=== PATIENT | male | born 1965 | race Caucasian/White ===

== ENCOUNTER 2020-01-06 17:43 | Inpatient (IN) | payer MEDICARE, MEDICAID, SELFPAY ==
[2020-01-06 18:00] VITALS: BMI 23.7
[2020-01-06 18:25] VITALS: BP 139/89; PULSE 62; RESP 16; TEMP 36.7; O2SAT 95
[2020-01-06 18:26] VITALS: BMI 23.7
--- NOTE | 2020-01-06 20:52 | PCM.HP.STD ---
Problem List (1) Debility Status: Acute (2) Perirectal abscess Status: Acute (3) Crohn disease Status: Chronic (4) Postoperative anemia Status: Acute (5) Restless leg syndrome Status: Chronic (6) GERD (gastroesophageal reflux disease) Status: Chronic (7) Hypokalemia Status: Chronic (8) Nausea Status: Chronic (9) Muscle spasm Status: Chronic (10) Anxiety Status: Chronic (11) Neuropathic pain Status: Chronic (12) Hypogonadism Status: Chronic (13) Vitamin B12 deficiency Status: Chronic History of Present Illness Date of Admission: 01/06/20 Chief Complaint: Here for rehabilitation, strengthening, wound care, prior to discharge home alone. 01/03/2020 The patient is a 54 year old Male with below past medical admitted to [facility]. He has past medical history of Crohn's Disease which has required multiple exploratory laparotomies and bowel resections as well as long-term use of steroids which led to multiple orthopedic procedures including hip replacement x 3 on his left side. Patient presented to outside facility for generalized fatigue with associated chills of one week with a new onset firmness and nodule in his right gluteus muscle one day in duration. CT scan of his abdomen pelvis with signs concerning for abscess or a soft tissue infection. He was transferred to [facility] for surgical evaluation. After discussion of treatment options, he consented to proceed with surgery with Dr. Paiz for incision and drainage right perirectal abscess on 01/03/2020. He required one unit PRBC for post operative anemia. GI was consulted for Crohn's, started on balsalazide, and recommended outpatient follow up with GI to resume Entyvo. Patient is stable for discharge to SNF for continued wound care, Need to follow up with GI after discharge from SNF and with Dr. Paiz in 2 weeks. 01/06/2020 Admit to TCU with debility, here for rehabilitation, strengthening, wound care, prior to discharge home alone. Past Medical History Past Medical History (Chronic Problems): Chronic Problems Crohn disease (Chronic) Restless leg syndrome (Chronic) GERD (gastroesophageal reflux disease) (Chronic) Hypokalemia (Chronic) Nausea (Chronic) Muscle spasm (Chronic) Anxiety (Chronic) Neuropathic pain (Chronic) Hypogonadism (Chronic) Vitamin B12 deficiency (Chronic) Allergies cyclobenzaprine Adverse Reaction (Verified 01/06/20 18:38) Itching diphenhydramine Adverse Reaction (Verified 01/06/20 18:38) Itching erythromycin base Adverse Reaction (Verified 01/06/20 18:38) Nausea morphine Adverse Reaction (Verified 01/06/20 18:38) Nausea sulfasalazine [From Azulfidine] Adverse Reaction (Verified 01/06/20 18:38) Nausea zolpidem Adverse Reaction (Verified 01/06/20 18:38) Itching Home Medications: Ambulatory Orders Medication Instructions Recorded ALPRAZolam [Xanax] 0.5 mg PO QHS 01/06/20 Amoxicillin/Potassium Clav 1 tab PO BID 01/06/20 [Augmentin 875-125 Tablet] Ascorbic Acid [C-1000] 1,000 mg PO DAILY 01/06/20 Balsalazide Disodium [Colazal] 2,250 mg PO TID 01/06/20 Carisoprodol 425 mg PO DAILY 01/06/20 Cyanocobalamin [Vitamin B12] 1,000 mcg SUBCUT Q30D 01/06/20 Folic Acid 0.4 mg PO DAILY@0800 01/06/20 Loperamide [Imodium] 2 mg PO TID PRN 01/06/20 Loratadine 10 mg PO DAILY 01/06/20 Multivitamin 1 ea PO DAILY 01/06/20 Omeprazole [Prilosec] 40 mg PO DAILY 01/06/20 Oxycodone HCl [Roxicodone] 5 mg PO [id number] 01/06/20 Phenyleph/Mineral Oil/Petrolat 28 gm UT DAILY PRN 01/06/20 [Preparation H Ointment] Potassium Chloride [K-Dur] 20 meq PO DAILY 01/06/20 Prednisone 20 mg PO DAILY 01/06/20 Pregabalin [Lyrica] 150 mg PO DAILY 01/06/20 Ropinirole HCl [Requip] 2 mg PO QHS 01/06/20 Witch Lizzeth [Hemorrhoidal Hygiene] 1 ea TP DAILY PRN 01/06/20 proMETHazine tablet [Phenergan 25 mg PO Q6H PRN PRN 01/06/20 tablet] Surgical History: appendectomy, herniorrhaphy, total hip arthroplasty - Left x 3., - - Exploratory laparotomy, bowel resection, ankle surgery. Psychiatric History: Anxiety Lives: Alone Smoking Status: Current every day smoker Tobacco Use: Cigarettes Alcohol: Occasional Drugs: None - *Family History Maternal History Items: Diabetes Paternal History Items: No pertinent history Review of Systems Constitutional: Denies: Chills, Fever, Weight Change HEENT: Denies: Head Aches, Sinus Congestion, Sinus Drainage Cardiovascular: Denies: Chest Pain, Palpitations Respiratory: Denies: Cough, Shortness of breath at rest, Sputum production Gastrointestinal: Denies: Abdominal Pain, Nausea, Vomiting Genitourinary: Denies: Dysuria Musculoskeletal: Denies: Joint Pain, Joint Tenderness Skin: Denies: Rash, Wounds Neurological: Denies: Numbness, Tingling, Focal weakness Psychiatric: Denies: Anxiety, Depression, Homicidal Ideations, Suicidal Ideations Hematologic/ Lymphatic: Denies: Easy Bruising, Easy Bleeding VTE Information - Inpt Only VTE Present on Admission: No VTE Mechan Device Prophylaxis: Knee High IGNACIA Hose VTE Pharm Prophylaxis ordered?: No Patient Problems: Active and Suspected Problems Debility (Acute) Perirectal abscess (Acute) Postoperative anemia (Acute) - Physical Exam Vitals/I&O's: Vital Signs Temp Pulse Resp BP Pulse Ox 98.1 F 62 16 139/89 H 95 01/06/20 18:25 01/06/20 18:25 01/06/20 18:25 01/06/20 18:25 01/06/20 18:25 Oxygen Delivery Method Room Air Weight: 70.845 kg Body Mass Index (BMI) 23.7 General: Alert, Oriented x3, Cooperative HEENT: Atraumatic, PERRLA, EOMI, Normocephalic Neck: Supple, No JVD, Negative Carotid Bruits Lungs: Clear to auscultation, Normal air movement Cardiovascular: Regular rate, No murmurs, - - Left upper chest port. Abdomen: Bowel Sounds Present, Soft, Non Tender Extremities: No edema, Capillary Refill Less than 3 Seconds Skin: No rashes, Incision - Right medial buttock. Musculoskeletal: No Tenderness to Palpation of Joints or Extremities Neurological: Cranial nerves II-XII grossly intact Psych/Mental Status: Normal Affect, Appropriate Current Medications Alprazolam (Xanax) 0.5 mg PO QHS [facility] Amoxicillin/Clavulanate Potassium (Augmentin Tablet) 875 mg PO BIDCM [facility] Ascorbic Acid (Vitamin C) 1,000 mg PO DAILY [facility] Balsalazide (Balsalazide Disodium) 2,250 mg PO TID [facility] Folic Acid (Folic Acid) 1 mg PO DAILY@0800 [facility] Loperamide HCl (Imodium) 2 mg PO TID PRN PRN Reason: DIARRHEA/LOOSE STOOLS Loratadine (Claritin) 10 mg PO DAILY [facility] Multivitamins (Multivitamin) 1 tablet PO DAILY@0800 [facility] Non-Formulary Medication (Carisoprodol) 425 mg PO DAILY [facility] Oxycodone HCl (Oxyir) 5 mg PO Q6H PRN PRN PRN Reason: Pain Score 1-02/19 Stop: 01/11/20 19:01 Pantoprazole Sodium (Protonix) 40 mg PO DAILY [facility] Potassium Chloride (K-Dur) [facility] Pramipexole Dihydrochloride (Mirapex) 1 mg PO QHS [facility] Prednisone () [facility] Pregabalin (Lyrica) 150 mg PO DAILY [facility] Promethazine HCl (Phenergan Tablet) 25 mg PO Q6H PRN PRN PRN Reason: NAUSEA/VOMITING Tuberculin PPD (Tubersol, Aplisol, Ppd) 5 tu ID [id number] ONE Stop: 01/07/20 10:01 Tuberculin PPD (Tubersol, Aplisol, Ppd) 5 tu ID [id number] ONE Stop: 01/14/20 10:01 Assessment/Plan All Active Problems Debility (Acute) Perirectal abscess (Acute) Postoperative anemia (Acute) 54 year old male with below past medical history significant for Crohn Disease, hospitalized for perirectal abscess requiring incision/drainage 01/03/2020, complicated by postoperative anemia, admitted to TCU with debility, here for rehabilitation, strengthening, prior to discharge home alone. Debility - PT/OT. Pain - Tylenol 1000MG Q6H PRN pain (1-3), Oxycodone 5MG Q6H PRN (4-10). Bowel - Hold, Crohn's Disease. Adult immunization - Administer Prevnar 13, Pneumovax 32, Fluzone as appropriate. DVT prophylaxis - Hold, recent anemia. Anxiety - Xanax 0.5MG QHS, stable chronic intermediate school teacher use, GDR not recommended. Perirectal abscess - Augmentin 875MG BID thru 01/12/2020, Consult wound nurse. Vitamin C deficiency - Vitamin C 1000MG daily. Crohn's Disease - Balsalazide 2250MG TID, Prednisone 40MG daily, he is transitioning to new GI doctor. Muscle spasm - Baclofen 10MG daily. Folate deficiency - Folic Acid 1MG daily. Allergic Rhinitis - Loratadine 10MG daily. Nutrition - MVI daily. GERD - Pantoprazole 40MG daily. Hemorrhoids - Prep H 1 supp UT daily PRN. Hypokalemia - K 3.0, KCL 40MEQ PO x 1 dose, increase KCL 20MEQ BID, BMP in 2 days. Restless leg syndrome - Mirapex 1MG QHS. Neuropathic pain - Lyrica 150MG daily. Nausea - Phenergan 25MG Q6H PRN.
[2020-01-06] MEDS: BALSALAZIDE DISODIUM 750 MG CAPSULE 2250 MG PO (21:15)
[2020-01-06] MEDS: Pramipexole Di-HCl 1 MG Tablet PO (21:16)
[2020-01-06] MEDS: ALPRAZolam 0.5 MG Tablet PO (21:16)
[2020-01-06] MEDS: oxyCODONE 5 MG Tablet PO (21:17)
[2020-01-06] MEDS: Amox/Clavulanate 875 MG Tablet PO (23:20)
[2020-01-06 23:41] VITALS: O2SAT 98
[2020-01-07] MEDS: Pantoprazole Sodium 40 MG Tablet PO (06:53)
[2020-01-07] MEDS: BALSALAZIDE DISODIUM 750 MG CAPSULE 2250 MG PO ×3 (06:53→22:14)
[2020-01-07] MEDS: oxyCODONE 5 MG Tablet 10 MG PO ×4 (06:53→22:14)
[2020-01-07] MEDS: 0.9% Saline Lock 10 ML Syringe IV (06:54)
[2020-01-07] MEDS: Baclofen 10 MG Tablet PO (06:56)
[2020-01-07 07:01] VITALS: BP 130/71; PULSE 70; RESP 17; TEMP 36.9; O2SAT 98
[2020-01-07 07:06] LABS: Hematocrit 26.9 % (40-54); Hemoglobin 8.6 g/dL (13.0-16.5); Mean Corpuscular Hgb 30.2 pg (27.0-32.0); Mean Corpuscular Volume 94.4 fL (80-94); Mean Platelet Vol. 9.4 fl (6.2-12.0); POSITIVE COUNT YES; POSITIVE MORPHOLOGY YES; Platelet Count 558 K/mm3 (150-450); RBC Distribution Width CV 16.8 % (11.6-14.6); RBC Distribution Width SD 57.3 fl (35.1-43.9); Red Blood Count 2.85 M/mm3 (4.6-6.2)
[2020-01-07 07:09] LABS: Differential Indicated MANUAL DIFF
[2020-01-07 07:18] LABS: Anion Gap 3 (5-15); BUN 7 mg/dL (7-18); BUN/Creat Ratio 8.3 RATIO (10-20); Calcium,Total 8.1 mg/dL (8.5-10.1); Chloride 107 mmol/L (98-107); Creatinine, Serum 0.84 mg/dL (0.70-1.30); EST Glomerular Filtration Rate 101 mL/min (>60); Est Glom Filt Rate - Afr Amer 122 mL/min (>60); Estimated Creatinine Clearance 98.39 ml/min; Glucose 71 mg/dL (74-106); Sodium Level 142 mmol/L (136-145)
[2020-01-07 08:40] LABS: Lymphocyte 18 % (19-41); Monocyte 5 % (0-10); Myelocyte 2 (0-0); Neutrophil-Segmented 75 % (47-70); Total Cells Counted 100 (MANUAL DIFF)
[2020-01-07 08:41] LABS: Platelet Estimate MOD INC (ADEQ); Red Cell Morphology NORM C+C NORMAL (NORM C&C)
[2020-01-07 08:43] LABS: Absolute Neutrophil Count 12.8 X10^3/uL (2.0-7.7)
[2020-01-07] MEDS: Loratadine 10 MG Tablet PO (09:27)
[2020-01-07] MEDS: Ascorbic Acid 500 MG Tablet 1000 MG PO (09:29)
[2020-01-07] MEDS: Multivitamins,Therapeutic Tablet 1 TABLET PO (09:29)
[2020-01-07] MEDS: predniSONE 20 MG Tablet 40 MG PO (09:31)
[2020-01-07] MEDS: Folic Acid 1 MG Tablet PO (09:38)
[2020-01-07] MEDS: Pregabalin 75 MG Capsule 150 MG PO (09:39)
[2020-01-07] MEDS: Amox/Clavulanate 875 MG Tablet PO ×2 (11:27→20:22)
[2020-01-07] MEDS: Tuberculin,Purif.prot.deriv. 50 TU/ML Vial 5 ML ID (13:04)
--- NOTE | 2020-01-07 14:13 | PHA.CONS_ITS ---
<WildDaphney - Last Filed: 01/07/20 14:13> Progress Note - Pharmacy Subjective: TCU Admission Objective: Allergies cyclobenzaprine Adverse Reaction (Verified 01/06/20 18:38) Itching diphenhydramine Adverse Reaction (Verified 01/06/20 18:38) Itching erythromycin base Adverse Reaction (Verified 01/06/20 18:38) Nausea morphine Adverse Reaction (Verified 01/06/20 18:38) Nausea sulfasalazine [From Azulfidine] Adverse Reaction (Verified 01/06/20 18:38) Nausea zolpidem Adverse Reaction (Verified 01/06/20 18:38) Itching Current Medications Generic Name Dose Route Start Last Admin Trade Name Freq PRN Reason Stop Dose Admin Acetaminophen 1,000 mg 01/06/20 21:13 Tylenol PO Q6H PRN PRN Pain Score 1-3/10 Alprazolam 0.5 mg 01/06/20 22:00 01/06/20 21:16 Xanax PO 0.5 mg QHS [facility] Administration Amoxicillin/Clavulanate Potassium 875 mg 01/07/20 08:00 01/07/20 11:27 Augmentin Tablet PO 01/11/20 23:59 875 mg BIDCM [facility] Administration Ascorbic Acid 1,000 mg 01/07/20 08:00 01/07/20 09:29 Vitamin C PO 1,000 mg DAILY@0800 [facility] Administration Baclofen 10 mg 01/07/20 06:00 01/07/20 06:56 Lioresal PO 10 mg DAILY [facility] Administration Balsalazide 2,250 mg 01/06/20 22:00 01/07/20 13:06 Balsalazide Disodium PO 2,250 mg TID [facility] Administration Folic Acid 1 mg 01/07/20 08:00 01/07/20 09:38 Folic Acid PO 1 mg DAILY@0800 [facility] Administration Heparin Sodium (Beef Lung) 50 units 01/07/20 01:09 IV UD PRN Port-a-Cath (VAD)Heparin Flush Hydrocortisone 1 applic 01/07/20 08:26 Hytone TOPICAL TID PRN PRN Hemorrhoids Protocol Loperamide HCl 2 mg 01/06/20 18:28 Imodium PO TID PRN DIARRHEA/LOOSE STOOLS Loratadine 10 mg 01/07/20 08:00 01/07/20 09:27 Claritin PO 10 mg DAILY@0800 [facility] Administration Multivitamins 1 tablet 01/07/20 08:00 01/07/20 09:29 Multivitamin PO 1 tablet DAILY@0800 [facility] Administration Nutritional Formula (Lactose Free) 120 ml 01/07/20 06:00 01/07/20 12:19 Ensure Enlive PO 120 ml 4X/DAY [facility] Administration Oxycodone HCl 10 mg 01/06/20 21:55 01/07/20 13:10 Oxyir PO 01/11/20 19:01 10 mg Q4H PRN PRN Administration Pain Score 4-10/10 Pantoprazole Sodium 40 mg 01/07/20 06:00 01/07/20 06:53 Protonix PO 40 mg DAILY [facility] Administration Potassium Chloride 20 meq 01/07/20 17:00 [facility] Pramipexole Dihydrochloride 1 mg 01/06/20 22:00 01/06/20 21:16 Mirapex PO 1 mg QHS [facility] Administration Prednisone 40 mg 01/07/20 08:00 01/07/20 09:31 [facility] Pregabalin 150 mg 01/07/20 08:00 01/07/20 09:39 Lyrica PO 150 mg DAILY@0800 [facility] Administration Promethazine HCl 25 mg 01/06/20 18:28 Phenergan Tablet PO Q6H PRN PRN NAUSEA/VOMITING Sodium Chloride 10 - 40 ml 01/07/20 01:09 01/07/20 06:54 IV 30 ml UD PRN Administration Port-a-Cath (VAD) Flush Sodium Chloride 10 - 40 ml 01/07/20 01:09 0.9% Nacl (Sterile) Posiflush IV UD PRN Port access or dressing change Tuberculin PPD 5 tu 01/14/20 10:00 Tubersol, Aplisol, Ppd ID 01/14/20 10:01 X1 ONE Problem List Debility (Acute) Perirectal abscess (Acute) Crohn disease (Chronic) Postoperative anemia (Acute) Restless leg syndrome (Chronic) GERD (gastroesophageal reflux disease) (Chronic) Hypokalemia (Chronic) Nausea (Chronic) Muscle spasm (Chronic) Anxiety (Chronic) Neuropathic pain (Chronic) Hypogonadism (Chronic) Vitamin B12 deficiency (Chronic) Vital Signs Temp Pulse Resp BP Pulse Ox 98.5 F 70 17 130/71 H 98 01/07/20 07:01 01/07/20 07:01 01/07/20 07:01 01/07/20 07:01 01/07/20 07:01 Oxygen Delivery Method Room Air Weight: 70.845 kg Body Mass Index (BMI) 23.7 Sodium 142 mmol/L (136-145) 01/07/20 06:40 Potassium 3.0 mmol/L (3.5-5.1) L 01/07/20 06:40 Chloride 107 mmol/L (98-107) 01/07/20 06:40 Carbon Dioxide 32.0 mmol/L (21.0-32.0) 01/07/20 06:40 Anion Gap 3 (5-15) L 01/07/20 06:40 BUN 7 mg/dL (7-18) 01/07/20 06:40 Creatinine 0.84 mg/dL (0.70-1.30) 01/07/20 06:40 Est GFR (MDRD) Af Amer 122 mL/min (>60) 01/07/20 06:40 Est GFR (MDRD) Non-Af 101 mL/min (>60) 01/07/20 06:40 BUN/Creatinine Ratio 8.3 RATIO (10-20) L 01/07/20 06:40 Glucose 71 mg/dL (74-106) L 01/07/20 06:40 Assessment/Plan: *1. Pain: acetaminophen 1000mg PO Q6H PRN pain 1-3/10 and oxycodone 10mg PO Q4H PRN pain 4-10/10 thru 01/10/20. Please consider increasing acetaminophen pain scale to 1-10 once oxycodone is D/C'ed to avoid gap in pain scale. Thanks. Please continue to monitor for increased pain, PRN usage, and decreased respiratory depressions. 2. Perirectal abscess: Augmentin 875mg PO BID thru 01/12/20. Please continue to monitor for S/S of infection, diarrhea, and upset stomach. 3. Crohn's disease: balsalazide 2250mg PO TID, prednisone 40mg PO DAILYCM, loperamide 2mg PO TID PRN diarrhea/loose stools. Please continue to monitor for S/S of infection and diarrhea. 4. Muscle spasm: baclofen 10mg PO daily. Please continue to monitor for muscle spasms. 5. GERD: pantoprazole 40mg PO daily. Please continue to monitor for GERD symptoms. 6. Hypokalemia: potassium chloride 20mEq PO BIDCM. Please continue to monitor potassium levels (last 3.0 mmol/L). 7. Restless leg syndrome: pramipexole 1mg PO QHS. Please continue to monitor for S/S of restless leg syndrome. 8. Neuropathic pain: pregabalin 150mg PO daily. Please continue to monitor for increased pain and renal function. 9. Allergic rhinitis: loratadine 10mg PO daily. Please continue to monitor for S/S of allergies and drowsiness. 10. Nausea: promethazine 25mg PO Q6H PRN nausea/vomiting. Please continue to monitor for nausea/vomiting and PRN usage. *11. Overall nutrition/vitamin deficiencies: ascorbic acid 1000mg PO DAILYCM, folic acid 1mg PO DAILYCM, and multivitamin 1T PO DAILYCM. Please consider ordering a folate level now and then annually as clinically appropriate. Thanks. Psychotropic Medications: 1. Anxiety: alprazolam 0.5mg PO QHS. Please see physician note regarding GDR. Unnecessary Medications: None Bowel Regimen: None Date of Note:: 01/07/20 - Provider Comments Provider responsibility: Provider responsible to enter orders to implement recommendations <Juan Wu Chi - Last Filed: 01/07/20 17:14> Progress Note - Pharmacy Subjective: [] Objective: Allergies cyclobenzaprine Adverse Reaction (Verified 01/06/20 18:38) Itching diphenhydramine Adverse Reaction (Verified 01/06/20 18:38) Itching erythromycin base Adverse Reaction (Verified 01/06/20 18:38) Nausea morphine Adverse Reaction (Verified 01/06/20 18:38) Nausea sulfasalazine [From Azulfidine] Adverse Reaction (Verified 01/06/20 18:38) Nausea zolpidem Adverse Reaction (Verified 01/06/20 18:38) Itching Current Medications Generic Name Dose Route Start Last Admin Trade Name Freq PRN Reason Stop Dose Admin Acetaminophen 1,000 mg 01/06/20 21:13 Tylenol PO Q6H PRN PRN Pain Score 1-3/10 Alprazolam 0.5 mg 01/06/20 22:00 01/06/20 21:16 Xanax PO 0.5 mg QHS [facility] Administration Amoxicillin/Clavulanate Potassium 875 mg 01/07/20 08:00 01/07/20 11:27 Augmentin Tablet PO 01/11/20 23:59 875 mg BIDCM [facility] Administration Ascorbic Acid 1,000 mg 01/07/20 08:00 01/07/20 09:29 Vitamin C PO 1,000 mg DAILY@0800 [facility] Administration Baclofen 10 mg 01/07/20 06:00 01/07/20 06:56 Lioresal PO 10 mg DAILY [facility] Administration Balsalazide 2,250 mg 01/06/20 22:00 01/07/20 13:06 Balsalazide Disodium PO 2,250 mg TID [facility] Administration Folic Acid 1 mg 01/07/20 08:00 01/07/20 09:38 Folic Acid PO 1 mg DAILY@0800 [facility] Administration Heparin Sodium (Beef Lung) 50 units 01/07/20 01:09 IV UD PRN Port-a-Cath (VAD)Heparin Flush Hydrocortisone 1 applic 01/07/20 08:26 Hytone TOPICAL TID PRN PRN Hemorrhoids Protocol Loperamide HCl 2 mg 01/06/20 18:28 Imodium PO TID PRN DIARRHEA/LOOSE STOOLS Loratadine 10 mg 01/07/20 08:00 01/07/20 09:27 Claritin PO 10 mg DAILY@0800 [facility] Administration Multivitamins 1 tablet 01/07/20 08:00 01/07/20 09:29 Multivitamin PO 1 tablet DAILY@0800 [facility] Administration Nutritional Formula (Lactose Free) 120 ml 01/07/20 06:00 01/07/20 12:19 Ensure Enlive PO 120 ml 4X/DAY [facility] Administration Oxycodone HCl 10 mg 01/06/20 21:55 01/07/20 13:10 Oxyir PO 01/11/20 19:01 10 mg Q4H PRN PRN Administration Pain Score 4-10/10 Pantoprazole Sodium 40 mg 01/07/20 06:00 01/07/20 06:53 Protonix PO 40 mg DAILY [facility] Administration Potassium Chloride 20 meq 01/07/20 17:00 K-Dur PO BIDCM [facility] Pramipexole Dihydrochloride 1 mg 01/06/20 22:00 01/06/20 21:16 Mirapex PO 1 mg QHS [facility] Administration Prednisone 40 mg 01/07/20 08:00 01/07/20 09:31 PO 40 mg DAILYCM [facility] Administration Pregabalin 150 mg 01/07/20 08:00 01/07/20 09:39 Lyrica PO 150 mg DAILY@0800 [facility] Administration Promethazine HCl 25 mg 01/06/20 18:28 Phenergan Tablet PO Q6H PRN PRN NAUSEA/VOMITING Sodium Chloride 10 - 40 ml 01/07/20 01:09 01/07/20 06:54 IV 30 ml UD PRN Administration Port-a-Cath (VAD) Flush Sodium Chloride 10 - 40 ml 01/07/20 01:09 0.9% Nacl (Sterile) Posiflush IV UD PRN Port access or dressing change Tuberculin PPD 5 tu 01/14/20 10:00 Tubersol, Aplisol, Ppd ID 01/14/20 10:01 X1 ONE Problem List Debility (Acute) Perirectal abscess (Acute) Crohn disease (Chronic) Postoperative anemia (Acute) Restless leg syndrome (Chronic) GERD (gastroesophageal reflux disease) (Chronic) Hypokalemia (Chronic) Nausea (Chronic) Muscle spasm (Chronic) Anxiety (Chronic) Neuropathic pain (Chronic) Hypogonadism (Chronic) Vitamin B12 deficiency (Chronic) Vital Signs Temp Pulse Resp BP Pulse Ox 98.5 F 91 16 140/85 H 94 01/07/20 15:51 01/07/20 15:51 01/07/20 15:51 01/07/20 15:51 01/07/20 15:51 Oxygen Delivery Method Room Air Weight: 70.845 kg Body Mass Index (BMI) 23.7 Sodium 142 mmol/L (136-145) 01/07/20 06:40 Potassium 3.0 mmol/L (3.5-5.1) L 01/07/20 06:40 Chloride 107 mmol/L (98-107) 01/07/20 06:40 Carbon Dioxide 32.0 mmol/L (21.0-32.0) 01/07/20 06:40 Anion Gap 3 (5-15) L 01/07/20 06:40 BUN 7 mg/dL (7-18) 01/07/20 06:40 Creatinine 0.84 mg/dL (0.70-1.30) 01/07/20 06:40 Est GFR (MDRD) Af Amer 122 mL/min (>60) 01/07/20 06:40 Est GFR (MDRD) Non-Af 101 mL/min (>60) 01/07/20 06:40 BUN/Creatinine Ratio 8.3 RATIO (10-20) L 01/07/20 06:40 Glucose 71 mg/dL (74-106) L 01/07/20 06:40 Assessment/Plan: Psychotropic Medications: Unnecessary Medications: Bowel Regimen: - Provider Comments Provider responsibility: Provider responsible to enter orders to implement recommendations Provider Comments to Recommendations by Pharmacy: Agree
--- NOTE | 2020-01-07 14:59 | NURSING ---
wound photo: right inner buttock
[2020-01-07 15:51] VITALS: BP 140/85; PULSE 91; RESP 16; TEMP 36.9; O2SAT 94
[2020-01-07] MEDS: Hydrocortisone 2.5% Crm 1 APPLIC TOPICAL (18:10)
[2020-01-07] MEDS: Pramipexole Di-HCl 1 MG Tablet PO (22:14)
[2020-01-07] MEDS: ALPRAZolam 0.5 MG Tablet PO (22:17)
[2020-01-08 04:42] VITALS: BP 151/97; PULSE 86; RESP 18; TEMP 36.8; O2SAT 95
[2020-01-08] MEDS: 0.9% Saline Lock 10 ML Syringe IV ×2 (04:45→23:05)
[2020-01-08] MEDS: oxyCODONE 5 MG Tablet 10 MG PO ×5 (04:45→22:47)
[2020-01-08] MEDS: BALSALAZIDE DISODIUM 750 MG CAPSULE 2250 MG PO ×3 (05:58→22:47)
[2020-01-08] MEDS: Baclofen 10 MG Tablet PO (05:58)
[2020-01-08] MEDS: Pantoprazole Sodium 40 MG Tablet PO (05:58)
[2020-01-08] MEDS: Multivitamins,Therapeutic Tablet 1 TABLET PO (08:29)
[2020-01-08] MEDS: Loratadine 10 MG Tablet PO (08:29)
[2020-01-08] MEDS: Ascorbic Acid 500 MG Tablet 1000 MG PO (08:29)
[2020-01-08] MEDS: predniSONE 20 MG Tablet 40 MG PO (08:29)
[2020-01-08] MEDS: Amox/Clavulanate 875 MG Tablet PO ×2 (08:29→18:31)
[2020-01-08] MEDS: Folic Acid 1 MG Tablet PO (08:29)
[2020-01-08] MEDS: Pregabalin 75 MG Capsule 150 MG PO (08:33)
--- NOTE | 2020-01-08 09:38 | CASEMGMT ---
Social Work Discussed code status with pt. Pt chose DNR-CCA, no intubation. Notified nursing. MOLST form completed and placed in chart. Copies made of HCPOA and LW and placed in chart. Pt named mother, Katherine Rouse, as POA. Yahaira Caldwell, [employer]PERATOR [employer]
[2020-01-08 13:50] LABS: Pathologist Review Reviewed
[2020-01-08 14:20] VITALS: BP 144/93; PULSE 100; RESP 17; TEMP 36.6; O2SAT 95
[2020-01-08] MEDS: ALPRAZolam 0.5 MG Tablet PO (22:47)
[2020-01-08] MEDS: Pramipexole Di-HCl 1 MG Tablet PO (22:47)
[2020-01-09] MEDS: oxyCODONE 5 MG Tablet 10 MG PO ×5 (02:44→23:04)
[2020-01-09] MEDS: Baclofen 10 MG Tablet PO (04:54)
[2020-01-09] MEDS: Pantoprazole Sodium 40 MG Tablet PO (04:54)
[2020-01-09] MEDS: BALSALAZIDE DISODIUM 750 MG CAPSULE 2250 MG PO ×3 (04:54→23:04)
[2020-01-09 04:57] VITALS: BP 140/71; PULSE 71; RESP 17; TEMP 36.6; O2SAT 97
[2020-01-09 08:44] LABS: Anion Gap 5 (5-15); BUN 23 mg/dL (7-18); BUN/Creat Ratio 22.3 RATIO (10-20); Calcium,Total 8.6 mg/dL (8.5-10.1); Chloride 100 mmol/L (98-107); Creatinine, Serum 1.03 mg/dL (0.70-1.30); EST Glomerular Filtration Rate 80 mL/min (>60); Est Glom Filt Rate - Afr Amer 97 mL/min (>60); Estimated Creatinine Clearance 80.24 ml/min; Glucose 73 mg/dL (74-106); Potassium 3.9 mmol/L (3.5-5.1); Sodium Level 135 mmol/L (136-145)
[2020-01-09] MEDS: predniSONE 20 MG Tablet 40 MG PO (10:15)
[2020-01-09] MEDS: Ascorbic Acid 500 MG Tablet 1000 MG PO (10:15)
[2020-01-09] MEDS: Amox/Clavulanate 875 MG Tablet PO ×2 (10:15→16:13)
[2020-01-09] MEDS: Folic Acid 1 MG Tablet PO (10:16)
[2020-01-09] MEDS: Loratadine 10 MG Tablet PO (10:16)
[2020-01-09] MEDS: Pregabalin 75 MG Capsule 150 MG PO (10:16)
[2020-01-09] MEDS: Multivitamins,Therapeutic Tablet 1 TABLET PO (10:16)
[2020-01-09 14:31] VITALS: BP 135/72; PULSE 68; RESP 18; TEMP 36.6; O2SAT 97
[2020-01-09] MEDS: ALPRAZolam 0.5 MG Tablet PO (23:03)
[2020-01-09] MEDS: Hydrocortisone 2.5% Crm 1 APPLIC TOPICAL (23:04)
[2020-01-09] MEDS: Pramipexole Di-HCl 1 MG Tablet PO (23:05)
[2020-01-10] MEDS: Pantoprazole Sodium 40 MG Tablet PO (04:13)
[2020-01-10] MEDS: oxyCODONE 5 MG Tablet 10 MG PO ×5 (04:19→21:35)
[2020-01-10 04:20] VITALS: BP 130/88; PULSE 77; RESP 17; TEMP 36.7; O2SAT 98
--- NOTE | 2020-01-10 04:21 | NURSING ---
Pt complaint of heartburn. States he has had a hx of it for a very long time. States he uses Tums and Omeprazole at home. Educated pt that the hospital does not carry omeprazole but that Dr. Wu could be contacted for an order for Tums. Pt requesting saltine crackers, to take his Protonix now and his ensure. Requesting that Dr. Wu be updated in the AM.
[2020-01-10] MEDS: Baclofen 10 MG Tablet PO (06:17)
[2020-01-10] MEDS: BALSALAZIDE DISODIUM 750 MG CAPSULE 2250 MG PO ×3 (06:17→21:35)
[2020-01-10] MEDS: Pregabalin 75 MG Capsule 150 MG PO (08:35)
[2020-01-10] MEDS: Folic Acid 1 MG Tablet PO (08:37)
[2020-01-10] MEDS: predniSONE 20 MG Tablet 40 MG PO (08:37)
[2020-01-10] MEDS: Multivitamins,Therapeutic Tablet 1 TABLET PO (08:37)
[2020-01-10] MEDS: Amox/Clavulanate 875 MG Tablet PO ×2 (08:37→17:05)
[2020-01-10] MEDS: Loratadine 10 MG Tablet PO (08:37)
[2020-01-10] MEDS: Ascorbic Acid 500 MG Tablet 1000 MG PO (08:37)
[2020-01-10] MEDS: Calcium Carbonate 500 MG Tablet PO (10:35)
[2020-01-10] MEDS: Acetaminophen 500 MG Tablet 1000 MG PO (10:56)
[2020-01-10 13:53] VITALS: BP 157/100; PULSE 95; RESP 16; TEMP 36.3; O2SAT 98
[2020-01-10 14:58] VITALS: BP 132/78; PULSE 91
[2020-01-10] MEDS: Pramipexole Di-HCl 1 MG Tablet PO (21:35)
[2020-01-10] MEDS: ALPRAZolam 0.5 MG Tablet PO (21:35)
[2020-01-11] MEDS: Calcium Carbonate 500 MG Tablet PO ×2 (01:38→22:07)
[2020-01-11] MEDS: oxyCODONE 5 MG Tablet 10 MG PO ×4 (06:27→21:59)
[2020-01-11] MEDS: BALSALAZIDE DISODIUM 750 MG CAPSULE 2250 MG PO ×3 (06:28→21:52)
[2020-01-11] MEDS: Baclofen 10 MG Tablet PO (06:28)
[2020-01-11] MEDS: Pantoprazole Sodium 40 MG Tablet PO (06:28)
[2020-01-11 06:38] VITALS: BP 135/82; PULSE 75; RESP 18; TEMP 36.6; O2SAT 98
[2020-01-11] MEDS: Folic Acid 1 MG Tablet PO (08:25)
[2020-01-11] MEDS: Amox/Clavulanate 875 MG Tablet PO ×2 (08:25→16:52)
[2020-01-11] MEDS: Multivitamins,Therapeutic Tablet 1 TABLET PO (08:25)
[2020-01-11] MEDS: predniSONE 20 MG Tablet 40 MG PO (08:25)
[2020-01-11] MEDS: Loratadine 10 MG Tablet PO (08:26)
[2020-01-11] MEDS: Ascorbic Acid 500 MG Tablet 1000 MG PO (08:26)
[2020-01-11] MEDS: Pregabalin 75 MG Capsule 150 MG PO (08:29)
--- NOTE | 2020-01-11 08:39 | CASEMGMT ---
Social Work Pt requesting to DC home to get back to work. Pt has wound. Notified wound nurse and physician. Physician to visit patient to discuss DC. Notified pt. Pt agreeable. Will continue to follow.
--- NOTE | 2020-01-11 11:24 | NURSING ---
wound photo: right buttock
[2020-01-11 13:39] VITALS: BP 122/87; PULSE 106; RESP 16; TEMP 36.1; O2SAT 97
--- NOTE | 2020-01-11 15:30 | NS ---
Res requesting to see dietitian for information on getting ensure at home. He is on medicaid and hoping to be able to get supplements for free or reduced cost. Gave pt paper with comparable nutrition drinks at various stores that would be less expensive to buy. Also gave application for [employer] to get reimbursement for ensure product purchases. Res happy to get information and plans to start paperwork. Encouraged him to call if further questions.
--- NOTE | 2020-01-11 20:11 | PCM.DC ---
- Discharge Diagnoses Current Active Problems: Current Active and Chronic Problems Debility (Acute) Perirectal abscess (Acute) Crohn disease (Chronic) Postoperative anemia (Acute) Restless leg syndrome (Chronic) GERD (gastroesophageal reflux disease) (Chronic) Hypokalemia (Chronic) Nausea (Chronic) Muscle spasm (Chronic) Anxiety (Chronic) Neuropathic pain (Chronic) Hypogonadism (Chronic) Vitamin B12 deficiency (Chronic) You will use the following diet at home:: No restrictions, Regular Your food should be the consistency of: Regular Your liquids should be the consistency of: Regular/Thin Discharge Activity: May Drive, May Shower Weight Bearing Status: Weight bearing as tolerated Call your doctor if you observe: Fever of 101 or Higher, Inability to urinate, Inability to have a bowel movement, Shortness of breath, Chest pain, Uncontrolled pain Allergies/Adverse Reactions: Allergies cyclobenzaprine Adverse Reaction (Verified 01/06/20 18:38) Itching diphenhydramine Adverse Reaction (Verified 01/06/20 18:38) Itching erythromycin base Adverse Reaction (Verified 01/06/20 18:38) Nausea morphine Adverse Reaction (Verified 01/06/20 18:38) Nausea sulfasalazine [From Azulfidine] Adverse Reaction (Verified 01/06/20 18:38) Nausea zolpidem Adverse Reaction (Verified 01/06/20 18:38) Itching Medications to take at Discharge Ascorbic Acid [C-1000] 1,000 mg PO DAILY 01/06/20 Cyanocobalamin [Vitamin B12] 1,000 mcg SUBCUT Q30D 01/06/20 Folic Acid 0.4 mg PO DAILY@0800 01/06/20 Loperamide [Imodium] 2 mg PO TID PRN 01/06/20 Loratadine 10 mg PO DAILY 01/06/20 Multivitamin 1 ea PO DAILY 01/06/20 Omeprazole [Prilosec] 40 mg PO DAILY 01/06/20 Phenyleph/Mineral Oil/Petrolat [Preparation H Ointment] 28 gm MO DAILY PRN 01/06/20 Potassium Chloride [K-Dur] 20 meq PO DAILY 01/06/20 Pregabalin [Lyrica] 150 mg PO DAILY 01/06/20 Ropinirole HCl [Requip] 2 mg PO QHS 01/06/20 Witch Lizzeth [Hemorrhoidal Hygiene] 1 ea TP DAILY PRN 01/06/20 proMETHazine tablet [Phenergan tablet] 25 mg PO Q6H PRN PRN 01/06/20 ALPRAZolam [Xanax] 0.5 mg PO QHS #30 tablet 01/11/20 Acetaminophen [Tylenol] 1,000 mg PO Q6H PRN PRN tablet 01/11/20 Baclofen [Lioresal] 10 mg PO DAILY #30 tab 01/11/20 Balsalazide Disodium [Colazal] 2,250 mg PO TID #90 cap 01/11/20 Calcium Carbonate [Tums] 500 - 1,000 mg PO Q6H PRN PRN tablet 01/11/20 Oxycodone HCl [Roxicodone] 10 mg PO Q6H 7 Days #56 tablet 01/11/20 predniSONE tablet 40 mg PO DAILYCM #60 tab 01/11/20 The following prescriptions were given: Balsalazide Disodium [Colazal] 2,250 mg PO TID #90 cap Transmission Status: Pending to [facility] Baclofen [Lioresal] 10 mg PO DAILY #30 tab Transmission Status: Pending to [facility] predniSONE tablet 40 mg PO DAILYCM #60 tab Transmission Status: Pending to [facility] Oxycodone HCl [Roxicodone] 10 mg PO Q6H 7 Days #56 tablet Transmission Status: Sent to [facility] ALPRAZolam [Xanax] 0.5 mg PO QHS #30 tablet Transmission Status: Sent to [facility] Primary Care Physician: Raimundo Mcintosh MD [Primary Care Provider] - Please follow up with your Primary Care Physician in: 1 week. Test Results: Test results from this visit will be discussed in further detail at your follow-up appointment, if applicable. Please Follow Up With: Chair 3 Infusion Please Follow Up With: Dr. Paiz When: 2 weeks Please Follow Up With: Dr. Mcintosh Proposed Discharge Date: 01/12/20
--- NOTE | 2020-01-11 20:12 | PCM.DC.SUM ---
Discharge Date and Diagnosis - Problem List Patient Problems: Active and Suspected Problems Debility (Acute) Perirectal abscess (Acute) Postoperative anemia (Acute) Date of Admission: 01/06/20 Date of Discharge: 01/12/20 - Primary Discharge Diagnosis Acute Problems: Active Problems Debility (Acute) Perirectal abscess (Acute) Postoperative anemia (Acute) - Secondary Discharge Diagnosis Chronic Problems: Chronic Problems Crohn disease (Chronic) Restless leg syndrome (Chronic) GERD (gastroesophageal reflux disease) (Chronic) Hypokalemia (Chronic) Nausea (Chronic) Muscle spasm (Chronic) Anxiety (Chronic) Neuropathic pain (Chronic) Hypogonadism (Chronic) Vitamin B12 deficiency (Chronic) Hospital Course and Treatment Imaging Results: 01/06/20 18:00 Diet: Regular - General Food consistency:: Regular Liquid Consistency:: Regular/Thin Consultations 01/06/20 18:44 Consult: Onc/Wound/retirement specialist Routine Comment: Operations: None Procedures: None Summary of Care Provided: The patient is a 54 year old Male with below past medical history significant for Crohn Disease, hospitalized for perirectal abscess requiring incision/drainage 01/03/2020, complicated by postoperative anemia, admitted to TCU with debility, here for rehabilitation, strengthening, prior to discharge home alone. Discharge home alone. Patient Problems: Active and Suspected Problems Debility (Acute) Perirectal abscess (Acute) Postoperative anemia (Acute) - Physical Exam Vitals/I&O's: Vital Signs Temp Pulse Resp BP Pulse Ox 96.9 F L 106 H 16 122/87 H 97 01/11/20 13:39 01/11/20 13:39 01/11/20 13:39 01/11/20 13:39 01/11/20 13:39 Oxygen Delivery Method Room Air Weight: 70.845 kg Body Mass Index (BMI) 23.7 Intake and Output for Last 24 Hours 01/09/20 01/10/20 01/11/20 23:59 23:59 23:59 Intake Total 1320 / 1320 1440 / 1440 1080 / 1080 Output Total 650 / 650 Balance 670 / 670 1440 / 1440 1080 / 1080 Current Medications Acetaminophen (Tylenol) 1,000 mg PO Q6H PRN PRN PRN Reason: Pain Score 1-3/10 Last Admin: 01/10/20 10:56 Dose: 1,000 mg Documented by: Alprazolam (Xanax) 0.[address] [facility] Last Admin: 01/10/20 21:35 Dose: 0.5 mg Documented by: Amoxicillin/Clavulanate Potassium ([facility]in [facility]) [facility] Stop: 01/11/20 23:59 Last Admin: 01/11/20 16:52 Dose: 875 mg Documented by: Ascorbic Acid (Vitamin C) 1,000 mg PO DAILY@0800 [facility] Last Admin: 01/11/20 08:26 Dose: 1,000 mg Documented by: Baclofen (Lioresal) [address] [facility] Last Admin: 01/11/20 06:28 Dose: 10 mg Documented by: Balsalazide (Balsalazide Disodium) 2,[address] [facility] Last Admin: 01/11/20 13:58 Dose: 2,250 mg Documented by: Calcium Carbonate (Tums) 500 - 1,000 mg PO Q6H PRN PRN PRN Reason: HEARTBURN Last Admin: 01/11/20 01:38 Dose: 1,000 mg Documented by: Folic Acid (Folic Acid) 1 mg PO DAILY@0800 [facility] Last Admin: 01/11/20 08:25 Dose: 1 mg Documented by: Heparin Sodium (Beef Lung) () 50 units IV UD PRN PRN Reason: Port-a-Cath (VAD)Heparin Flush Hydrocortisone (Hytone) 1 applic TOPICAL TID PRN PRN; Protocol PRN Reason: Hemorrhoids Last Admin: 01/09/20 23:04 Dose: 1 applicatio Documented by: Loperamide HCl (Imodium) 2 mg PO TID PRN PRN Reason: DIARRHEA/LOOSE STOOLS Loratadine (Claritin) 10 mg PO DAILY@0800 [facility] Last Admin: 01/11/20 08:26 Dose: 10 mg Documented by: Multivitamins (Multivitamin) 1 tablet PO DAILY@0800 [facility] Last Admin: 01/11/20 08:25 Dose: 1 tablet Documented by: Nutritional Formula (Lactose Free) (Ensure Enlive) 120 ml PO 4X/DAY [facility] Last Admin: 01/11/20 16:51 Dose: 120 ml Documented by: Oxycodone HCl (Oxyir) 10 mg PO Q4H PRN PRN PRN Reason: Pain Score 4-10/10 Last Admin: 01/11/20 16:54 Dose: 10 mg Documented by: Pantoprazole Sodium (Protonix) [address] [facility] Last Admin: 01/11/20 06:28 Dose: 40 mg Documented by: Potassium Chloride (K[facility]Dur) [facility] Last Admin: 01/11/20 16:51 Dose: 20 meq Documented by: Pramipexole Dihydrochloride (Mirapex) [address] [facility] Last Admin: 01/10/20 21:35 Dose: 1 mg Documented by: Pred[facility]one () [facility] Last Admin: 01/11/20 08:25 Dose: 40 mg Documented by: Pregabalin (Lyrica) 150 mg PO DAILY@0800 [facility] Last Admin: 01/11/20 08:29 Dose: 150 mg Documented by: Promethazine HCl (Phenergan Tablet) 25 mg PO Q6H PRN PRN PRN Reason: NAUSEA/VOMITING Sodium Chloride () 10 - 40 ml IV UD PRN PRN Reason: Port-a-Cath (VAD) Flush Last Admin: 01/08/20 23:05 Dose: 10 ml Documented by: Sodium Chloride (0.9% Nacl (Sterile) Posiflush) 10 - 40 ml IV UD PRN PRN Reason: Port access or dressing change Tuberculin PPD (Tubersol, Aplisol, Ppd) 5 tu ID [id number] Stop: 01/14/20 10:01 Discharge Diet: No Restrictions Discharge Activity: May Drive, May Shower Weight Bearing Status: Weight bearing as tolerated Call your doctor if you observe: Fever of 101 or Higher, Inability to urinate, Inability to have a bowel movement, Shortness of breath, Chest pain, Uncontrolled pain Home Medications: Medications to take at Discharge Ascorbic Acid [C-1000] 1,000 mg PO DAILY 01/06/20 Cyanocobalamin [Vitamin B12] 1,000 mcg SUBCUT Q30D 01/06/20 Folic Acid 0.4 mg PO DAILY@0800 01/06/20 Loperamide [Imodium] 2 mg PO TID PRN 01/06/20 Loratadine 10 mg PO DAILY 01/06/20 Multivitamin 1 ea PO DAILY 01/06/20 Omeprazole [Prilosec] 40 mg PO DAILY 01/06/20 Phenyleph/Mineral Oil/Petrolat [Preparation H Ointment] 28 gm DE DAILY PRN 01/06/20 Potassium Chloride [K-Dur] 20 meq PO DAILY 01/06/20 Pregabalin [Lyrica] 150 mg PO DAILY 01/06/20 Ropinirole HCl [Requip] 2 mg PO QHS 01/06/20 Alanis Hobsonel [Hemorrhoidal Hygiene] 1 ea TP DAILY PRN 01/06/20 proMETHazine tablet [Phenergan tablet] 25 mg PO Q6H PRN PRN 01/06/20 ALPRAZolam [Xanax] 0.5 mg PO QHS #30 tablet 01/11/20 Acetaminophen [Tylenol] 1,000 mg PO Q6H PRN PRN tablet 01/11/20 Baclofen [Lioresal] 10 mg PO DAILY #30 tab 01/11/20 Balsalazide Disodium [Colazal] 2,250 mg PO TID #90 cap 01/11/20 Calcium Carbonate [Tums] 500 - 1,000 mg PO Q6H PRN PRN tablet 01/11/20 Oxycodone HCl [Roxicodone] 10 mg PO Q6H 7 Days #56 tablet 01/11/20 predniSONE tablet 40 mg PO DAILYCM #60 tab 01/11/20 Following Prescriptions Were Given to Patient: Balsalazide Disodium [Colazal] 2,250 mg PO TID #90 cap Transmission Status: Pending to [facility] Baclofen [Lioresal] 10 mg PO DAILY #30 tab Transmission Status: Pending to [facility] predniSONE tablet 40 mg PO DAILYCM #60 tab Transmission Status: Pending to [facility] Oxycodone HCl [Roxicodone] 10 mg PO Q6H 7 Days #56 tablet Transmission Status: Sent to [facility] ALPRAZolam [Xanax] 0.5 mg PO QHS #30 tablet Transmission Status: Sent to [facility] Primary Care Physician: Raimundo Mcintosh MD [Primary Care Provider] - Please follow up with your Primary Care Physician in: 1 week. Please Follow Up With: Chair 3 Infusion Please Follow Up With: Dr. Paiz When: 2 weeks Please Follow Up With: Dr. Micntosh Disposition: Home Minutes spent on discharge:: 30 Patient Condition:: Stable Medical Necessity - Tobacco Use Smoking Status: Current every day smoker Tobacco Use: Cigarettes Meaningful Use Info Meaningful Use Diagnoses (Choose all that apply): None applicable
[2020-01-11] MEDS: ALPRAZolam 0.5 MG Tablet PO (21:53)
[2020-01-11] MEDS: Pramipexole Di-HCl 1 MG Tablet PO (21:54)
--- NOTE | 2020-01-12 00:53 | NURSING ---
Pt reports talking to Dr Wu and plans to dc home 01-12-20, states mother is planning to pcik him up at 1000, message left with sw, Pt does not have packing in wound at this time, is wearing mesh underwear with abd over incision to collect drainage, pt states is able to care for wound by doing this and plans to go home and take care of incision in this matter, educated about need to keep clean and use good hygiene
[2020-01-12] MEDS: Calcium Carbonate 500 MG Tablet PO (04:16)
[2020-01-12 04:20] VITALS: BP 137/94; PULSE 85; RESP 16; TEMP 36.1
[2020-01-12] MEDS: Pantoprazole Sodium 40 MG Tablet PO (06:19)
[2020-01-12] MEDS: BALSALAZIDE DISODIUM 750 MG CAPSULE 2250 MG PO (06:19)
[2020-01-12] MEDS: Baclofen 10 MG Tablet PO (06:20)
[2020-01-12] MEDS: predniSONE 20 MG Tablet 40 MG PO (08:17)
[2020-01-12] MEDS: Folic Acid 1 MG Tablet PO (08:17)
[2020-01-12] MEDS: Loratadine 10 MG Tablet PO (08:17)
[2020-01-12] MEDS: Multivitamins,Therapeutic Tablet 1 TABLET PO (08:18)
[2020-01-12] MEDS: Ascorbic Acid 500 MG Tablet 1000 MG PO (08:18)
--- NOTE | 2020-01-12 08:23 | CASEMGMT ---
Social Work Physician agreed to pt request to DC home on this date. Spoke with pt and he denies any needs at DC. Mother to transport pt. Plan: DC home alone 01/11 with no needs ENMA WillettW
[2020-01-12] MEDS: Pregabalin 75 MG Capsule 150 MG PO (08:32)
--- NOTE | 2020-01-12 08:39 | NURSING ---
Pt discharging home today. encouraged patient to follow up with Dr Paiz to monitor the coleen rectal abscess. Pt continues to state he will follow up with his family physician.
[2020-01-12 10:00] VITALS: BP 142/89; PULSE 119; RESP 18; TEMP 36.3; O2SAT 98
--- NOTE | 2020-01-15 07:44 | MDS.RN ---
Information for the mds was obtained from review of the clinical record, interview of resident, staff, and direct observation of resident's care.
== END 2020-01-12 10:00 | disposition home or self-care (01) | DRG 394 ==
PROVIDERS: Admitting Provider Family Medicine Geriatric Medicine; PCP Family Medicine; Visit Provider Family Medicine Geriatric Medicine
DX: K61.1 Rectal abscess (principal); K50.90 Crohn's disease, unspecified, without complications; K21.9 Gastro-esophageal reflux disease without esophagitis; G25.81 Restless legs syndrome; F41.9 Anxiety disorder, unspecified; E87.6 Hypokalemia; K64.9 Unspecified hemorrhoids; F17.210 Nicotine dependence, cigarettes, uncomplicated
CPT/HCPCS: 36415; 80048; 85025; 87635; 94799; 97110; 97162; 97166; 97530; 97535; 97802; 99406; A4216; U0003